=== PATIENT | male | born 1960 | race Two or more races ===

== ENCOUNTER 2025-01-07 23:55 | Inpatient (IN) | payer MEDICAID ==
[~2025-01-07] VITALS: Ht 157.5 cm; Wt 44.2 kg
[2025-01-08] VITALS (8 sets, daily range): BP systolic 113–156; BP diastolic 60–74; PULSE 67–78; RESP 16–18; TEMP 97.4–98.4; O2SAT 93–100
[2025-01-08 01:05] LABS: Hematocrit 27.9 % (41.0-53.0); Hemoglobin 9.3 g/dL (13.5-17.5); Mean Corpuscular Hemoglobin 33.7 pg (28.0-32.0); Mean Corpuscular Volume 100.8 fL (80.0-100.0); Nucleated Red Blood Cells % 0.0 %
--- NOTE | 2025-01-08 01:05 | ED.PDOC ---
History of Present Illness HPI Comments 64-year-old male who came to ER via EMS for hypoglycemia. Patient has history of diabetes, end stage renal disease on dialysis every Friday. Was noted by family members that patient appeared weak and lethargic, noted that his blood sugar was low in the 40s. Paramedics were called, blood sugar was 50, was given D10 water, was advised to go to the hospital but patient decided to stay home. Patient had the full dinner, however patient has remained weak and hypoglycemic. 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 Information Source: Patient, Emergency Med Personnel Mode of Arrival: EMS Severity: Moderate Timing: Hours Duration: Since onset Past Medical History PAST MEDICAL HISTORY: DM, ESRD Surgical History (Other): Dialysis every Friday Family History Family History: Reviewed,noncontributory to illness Social History Smoker: Non-Smoker Alcohol: Denies ETOH Use Drugs: Denies Drug Use Lives In: Home Constitutional: reports: fatigue, weakness; denies: chills, diaphoresis, fever, malaise, sweats, others EENTM: denies: blurred vision, double vision, ear bleeding, ear discharge, ear drainage, ear pain, ear ringing, eye pain, eye redness, hearing loss, mouth pain, mouth swelling, nasal discharge, nose bleeding, nose congestion, nose pain, photophobia, tearing, throat pain, throat swelling, voice changes, others Respiratory: denies: cough, hemoptysis, orthopnea, SOB at rest, shortness of breath, SOB with excertion, stridor, wheezing, others Cardiovascular: denies: chest pain, dizzy spells, diaphoresis, Dyspnea on exertion, edema, irregular heart beat, left arm pain, lightheadedness, palpitations, PND, syncope, others Gastrointestinal: denies: abdomen distended, abdominal pain, blood streaked bowels, constipated, diarrhea, dysphagia, difficulty swallowing, hematemesis, melena, nausea, poor appetite, poor fluid intake, rectal bleeding, rectal pain, vomiting, others Genitourinary: denies: burning, dysuria, flank pain, frequency, hematuria, incontinence, penile discharge, penile sore, pain, testicle pain, testicle swelling, urgency, others Neurological: denies: dizziness, fainting, headache, left sided numbness, left sided weakness, numbness, paresthesia, pre-existing deficit, right sided numb ness, right sided weakness, seizure, speech problems, tingling, tremors, weakness, others Musculoskeletal: denies: back pain, gout, joint pain, joint swelling, muscle pain, muscle stiffness, neck pain, others Integumetry: denies: bruises, change in color, change in hair/nails, dryness, laceration, lesions, lumps, rash, wounds, others Allergic/Immunocompromised: denies: Difficulty Healing, Frequent Infections, Hives, Itching, others Hematologic/Lymphatic: denies: anemia, blood clots, easy bleeding, easy bruising, swollen glands, others Endocrine: denies: excessive hunger, excessive sweating, excessive thirst, excessive urination, flushing, intolerance to cold, intolerance to heat, unexplained weight gain, unexplained weight loss, others Psychiatric: denies: anxiety, bipolar disorder, depression, hopeless, panic disorder, schizophrenia, sleepless, suicidal, others Physical Exam General Appearance: No Apparent Distress, Normal HEENT: Normal ENT Inspection, Pharynx Normal, TMs Normal Neck: Full Range of Motion, Non-Tender, Normal, Normal Inspection Respiratory: Chest Non-Tender, Lungs Clear, No Accessory Muscle Use, No Respiratory Distress, Normal Breath Sounds Cardiovascular: No Edema, No JVD, No Murmur, No Gallop, Normal Peripheral Pulses, Regular Rate/Rhythm Breast Exam: Deferred Gastrointestinal: No Organomegaly, Non Tender, No Pulsatile Mass, Normal Bowel Sounds, Soft Genitalia: Deferred Pelvic: Deferred Rectal: Deferred Extremities: No calf tenderness, Normal capillary refill, Normal inspection, Normal range of motion, Non-tender, No pedal edema Musculoskeletal : Apperance: Normal Neurologic: Alert, 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 Was a procedure done?: No Differential Dx Considerations may include: Weakness, hypoglycemia, diabetes, sepsis, UTI X-Ray, Labs, Meds, VS Vital Signs Date Time Temp Pulse Resp B/P (MAP) Pulse Ox O2 Delivery O2 Flow Rate FiO2 01/08/25 01:17 78 18 98 Room Air* 0 21 01/08/25 01:17 98.1 78 18 115/68 (84) 98 98.1 01/08/25 00:06 71 01/07/25 23:55 98.4 83 15 131/71 98 98.4 Lab Test 01/08/25 00:58 01/08/25 00:44 Range/Units White Blood Count 4.7 4.4-10.8 10^3/uL Red Blood Count 2.77 L 4.5-5.90 10^6/uL Hemoglobin 9.3 L 13.5-17.5 g/dL Hematocrit 27.9 L 41.0-53.0 % Mean Corpuscular Volume 100.8 H 80.0-100.0 fL Mean Corpuscular Hemoglobin 33.7 H 28.0-32.0 pg Mean Corpuscular Hemoglobin Concent 33.4 32.0-36.0 g/dL Red Cell Distribution Width 14.3 11.8-14.3 % Platelet Count 249 140-450 10^3/uL Mean Platelet Volume 6.7 L 6.9-10.8 fL Neutrophils (%) (Auto) 77.9 37.0-80.0 % Lymphocytes (%) (Auto) 10.4 10.0-50.0 % Monocytes (%) (Auto) 10.5 0.0-12.0 % Eosinophils (%) (Auto) 0.4 0.0-7.0 % Basophils (%) (Auto) 0.8 0.0-2.0 % Neutrophils # (Auto) 3.6 1.6-8.6 10 ^3/uL Lymphocytes # (Auto) 0.5 0.4-5.4 10 ^3/uL Monocytes # (Auto) 0.5 0-1.3 10 ^3/uL Eosinophils # (Auto) 0 0-0.8 10 ^3/uL Basophils # (Auto) 0 0-0.2 10 ^3/uL Nucleated Red Blood Cells 0.0 % Sodium Level 133 L 136-145 mmol/L Potassium Level 3.5 3.5-5.1 mmol/L Chloride Level 93 L 98-107 mmol/L Carbon Dioxide Level 29 20-31 mmol/L Anion Gap 11 5-15 Blood Urea Nitrogen 40 H 9-23 mg/dL Creatinine 3.74 H 0.700-1.30 mg/dL Glomerular Filtration Rate Calc 17 >90 mL/min BUN/Creatinine Ratio 10.7 10.0-20.0 Serum Glucose 150 H 74-106 mg/dL Lactic Acid Level 2.5 *H 0.4-2.0 mmol/L Calcium Level 9.4 8.7-10.4 mg/dL Total Bilirubin 0.2 0.2-1.0 mg/dL Aspartate Amino Transferase (AST) 13 13-40 U/L Alanine Aminotransferase (ALT) < 9 7-40 U/L Alkaline Phosphatase 104 46-116 U/L Total Protein 7.7 5.7-8.2 g/dL Albumin 4.0 3.2-4.8 g/dL POC Glucose 147 H 70-106 mg/dl Time of 1ST Reevaluation: 00:58 Reevaluation 1ST: Unchanged Patient Education/Counseling: Diagnosis, Treatment Family Education/Counseling: No Family Present SEPSIS Sepsis Screen Date sepsis recognized/suspect: Jan 07, 2025 Time Sepsis recognized/suspect: 2354 Recent Procedure: No On Antibiotic Therapy: No Respiratory Rate >20: No Heart Rate >90: No Temp<36 C (96.8 F) or >38.3 C: No SBP <90 or MAP <65 mmHG: No New Acute Mental Status Change: No Is the patient on CPAP, BIPAP,: No Physician Orders Electrocardigram (01/08/25 00:15) Blood Culture (01/08/25 00:26) Chest Portable (01/08/25 00:26) Blood Glucose Q2h (01/08/25 00:26) Vital Signs Date Time Temp Pulse Resp B/P (MAP) Pulse Ox O2 Delivery O2 Flow Rate FiO2 01/08/25 01:17 78 18 98 Room Air* 0 21 01/08/25 01:17 98.1 78 18 115/68 (84) 98 98.1 01/08/25 00:06 71 01/07/25 23:55 98.4 83 15 131/71 98 98.4 Laboratory Tests Test 01/08/25 00:58 Lactic Acid Level 2.5 mmol/L (0.4-2.0) *H White Blood Count 4.7 10^3/uL (4.4-10.8) Departure 1 Departure Time of Disposition: 02:35 Impression: Primary Impression: End stage renal failure on dialysis Additional Impression: Hypoglycemia Disposition: ADMITTED INPATIENT Condition: Guarded Discharged With: Self Comments 64-year-old male with a history of chronic renal failure on dialysis. Patient's glucose got low but now is improved. Lab results reviewed. Lactic acid slightly elevated 2.5. Chronic renal failure with BUN of 50 40 and creatinine of 3.74. Glucose improved to 147 then 150. Patient will need to be monitored to monitor his glucose and his renal failure. Patient will need admission for supportive care and further workup. Critical Care Note Critical Care Time?: Yes (35 min-critical care time only) Critical care comment: Hypoglycemia Stability Stability form required: No Heart Score Heart Score: Heart Score Response (Comments) Value History N/A 0 EKG N/A 0 Age N/A 0 Risk Factors N/A 0 Troponin N/A 0 Total 0 I personally scribed for DANNY OLMOS MD ([email or web address]) on 01/08/25 at 01:05. Electronically submitted by Salvador Garcia ([email or web address]). DANNY OLMOS MD Jan 08, 2025 01:05
[2025-01-08 01:25] LABS: Albumin 4.0 g/dL (3.2-4.8); Alkaline Phosphatase 104 U/L (46-116); Anion Gap 11 (5-15); BUN/Creatinine Ratio 10.7 (10.0-20.0); Calcium 9.4 mg/dL (8.7-10.4); Carbon Dioxide 29 mmol/L (20-31); Total Protein 7.7 g/dL (5.7-8.2)
[2025-01-08 01:28] LABS: Lactic Acid w/Reflex 2.5 mmol/L (0.4-2.0)
[2025-01-08 01:29] LABS: Alanine Aminotransferase < 9 U/L (7-40); Bilirubin, Total 0.2 mg/dL (0.2-1.0); Blood Urea Nitrogen 40 mg/dL (9-23); Chloride 93 mmol/L (98-107); Glucose 150 mg/dL (74-106); Potassium 3.5 mmol/L (3.5-5.1); Sodium 133 mmol/L (136-145)
--- NOTE | 2025-01-08 02:30 | DVH ---
CHEST RADIOGRAPH Indication: SOB Technique: Single frontal view of the chest was obtained COMPARISON: None FINDINGS: Lines and Tubes: None Lungs: Moderate patchy bilateral lower lung zone pulmonary airspace disease. Pleura: No effusion. No pneumothorax. Cardiomediastinal contours: Unremarkable Bones: Unremarkable Moderate gastric distention. IMPRESSION: 1. Moderate patchy bilateral lower lung zone pulmonary airspace disease. 2. Moderate gastric distention.
[2025-01-08] MEDS ORDERED: DEXTROSE 50% SYRINGE 50 ML IV ONE (04:10)
[2025-01-08] MEDS: DEXTROSE (50%) 50ML SYRG IV ONE (04:22)
[2025-01-08] MEDS: D5W 5% 1,000 ML IV ONE (04:22)
[2025-01-08] MEDS: D5W/LACTATED RINGERS 1,000 ML IV ONE (04:30)
[2025-01-08] MEDS ORDERED: DEXTROSE (50%) 50ML SYRG IV PRN (04:45)
[2025-01-08] MEDS ORDERED: NITROGLYCERIN 0.4 MG SL TAB SL PRN (05:00)
[2025-01-08] MEDS ORDERED: MORPHINE SULFATE INJ 2 MG/ml SYRG IV PRN ×2 (05:00→11:00)
[2025-01-08 05:05] LABS: INR 0.94 (0.9-1.15); Prothrombin Time 10.0 sec (9.3-11.8)
[2025-01-08 06:14] LABS: COVID19 ANTIGEN SOFIA FIA NEGATIVE (NEGATIVE)
[2025-01-08] MEDS: ACCU-CHEK COMFORT CURVE STRIP VI SCH (06:35)
--- NOTE | 2025-01-08 08:19 | DVHHPRES ---
History of Present Illness Resident Creating Document: DION MILIAN RESIDENT History of Present Illness 64-year-old male with history of end-stage renal disease on hemodialysis, bilateral cataracts, type 2 diabetes mellitus, peripheral neuropathy, chronic diarrhea, gangrene on left index finger and osteomyelitis on left middle finger presented with complaints of hypoglycemic episode with blood glucose level of 40. Patient complains that he felt nauseous and his vision went black. He also states that his head and throat began pounding and that he felt confused. PSHx: Hip surgery post mechanical fall in 2021 Family history: Diabetes mellitus in mother Social history: Denies smoking alcohol or recreational drug use Home medication: Midodrine, sevelamer, dutasteride, gabapentin, metoclopramide, Lokelma, Lantus 15 units at bedtime, Nephro-Lui Allergic history: Patient denies Lives with his daughter Review of Systems Review of Systems General: patient denies fever, fatigue, weaknes, sweating, any recent changes in appetite and weight HEENT: No headaches, visiual changes, hearing loss, tinnitus, nasal congestion and discharge, and sore throat. Cardiovascular: Denies chest pain, palpitations, dyspnea on exertion, orthopnea, or claudication. Respiratory: No cough, and wheezing. Gastrointestinal: Denies nausea, vomiting, dysphagia, odynophagia, heartburn, abdominal pain, flatulence, bloating, diarrhea, constipation, change in stool, or blood in stool. Genitourinary: No dysuria, hematuria, discharge, frequency, urgency, nocturia, incontinence, and urinary retention. Endocrine: No heat or cold intolerance, polydipsia, polyuria, and polyphagia. Neurological: No dizziness, extremity weakness and numbness, tremors, gait disturbance, seizures, and memory impairment. Psychiatric: Denies depression, anxiety,or insomnia. Musculoskeletal: Denies neck pain, stiffness and swelling, back pain, muscle weakness, joint pain, stiffness, swelling, or limited range of motion. Skin: No rashes, itching, skin lesion, changes in hair, nail, skin texture and b reast. Hematologic/Lymphatic: Denies easy bruising, bleeding tendencies, or lymph node enlargement. Allergies: Uncoded Allergies: nkda (Allergy, Unknown, 01/08/25) Medications Current Medications Medications Dose Ordered Sig/Jakob Route Start Time Stop Time Status Last Admin Dose Admin Amlodipine Besylate 5 mg DAILY PO 01/08/25 10:00 Diagnostic Test (Pha) 1 strip ACHS 01/08/25 07:00 01/08/25 06:35 1 STRIP Dextrose 50 ml UD PRN IV 01/08/25 04:45 Nitroglycerin 0.4 mg Q5MINP PRN SL 01/08/25 05:00 Morphine Sulfate 2 mg Q30M PRN IV 01/08/25 05:00 Exam Vital Signs Vital Signs Date Time Temp Pulse Resp B/P (MAP) Pulse Ox O2 Delivery O2 Flow Rate FiO2 01/08/25 06:09 98.1 78 20 150/83 (105) 97 98.1 01/08/25 01:17 Room Air* 0 21 Exam General Appearance: Confused, oriented to name and place, not oriented to time, Cooperative, mild distress HEENT: Atraumatic, PERRLA, EOMI, Mucous membrane moist/pink Respiratory: Clear to auscultation, Normal air movement Cardiovascular: Regular rate, Normal S1, Normal S2, No murmurs, no chest wall tenderness Abdominal: Diffuse abdominal tenderness present Extremities: Gangrene on left index finger Skin: No rashes, No breakdown Neuro: Normal gait, Normal speech, Strength at 5/5 X4 ext, Normal tone, Sensation intact, Cranial nerves 3-12 NL, Reflexes 2+ Psych/Mental Status: Mental status NL, Mood NL Labs/Xrays Labs Test 01/08/25 06:22 01/08/25 04:37 01/08/25 03:00 01/08/25 00:58 Range/Units POC Glucose 126 H 70-106 mg/dl Influenza Type A Antigen Negative Negative Influenza Type B Antigen Negative Negative SARS-CoV-2 Antigen (Rapid) Negative NEGATIVE Lactic Acid Level 1.8 0.4-2.0 mmol/L White Blood Count 4.7 4.4-10.8 10^3/uL Red Blood Count 2.77 L 4.5-5.90 10^6/uL Hemoglobin 9.3 L 13.5-17.5 g/dL Hematocrit 27.9 L 41.0-53.0 % Mean Corpuscular Volume 100.8 H 80.0-100.0 fL Mean Corpuscular Hemoglobin 33.7 H 28.0-32.0 pg Mean Corpuscular Hemoglobin Concent 33.4 32.0-36.0 g/dL Red Cell Distribution Width 14.3 11.8-14.3 % Platelet Count 249 140-450 10^3/uL Mean Platelet Volume 6.7 L 6.9-10.8 fL Neutrophils (%) (Auto) 77.9 37.0-80.0 % Lymphocytes (%) (Auto) 10.4 10.0-50.0 % Monocytes (%) (Auto) 10.5 0.0-12.0 % Eosinophils (%) (Auto) 0.4 0.0-7.0 % Basophils (%) (Auto) 0.8 0.0-2.0 % Neutrophils # (Auto) 3.6 1.6-8.6 10 ^3/uL Lymphocytes # (Auto) 0.5 0.4-5.4 10 ^3/uL Monocytes # (Auto) 0.5 0-1.3 10 ^3/uL Eosinophils # (Auto) 0 0-0.8 10 ^3/uL Basophils # (Auto) 0 0-0.2 10 ^3/uL Nucleated Red Blood Cells 0.0 % Sodium Level 133 L 136-145 mmol/L Potassium Level 3.5 3.5-5.1 mmol/L Chloride Level 93 L 98-107 mmol/L Carbon Dioxide Level 29 20-31 mmol/L Anion Gap 11 5-15 Blood Urea Nitrogen 40 H 9-23 mg/dL Creatinine 3.74 H 0.700-1.30 mg/dL Glomerular Filtration Rate Calc 17 >90 mL/min BUN/Creatinine Ratio 10.7 10.0-20.0 Serum Glucose 150 H 74-106 mg/dL Calcium Level 9.4 8.7-10.4 mg/dL Phosphorus Level 1.4 L 2.4-5.1 mg/dL Total Bilirubin 0.2 0.2-1.0 mg/dL Aspartate Amino Transferase (AST) 13 13-40 U/L Alanine Aminotransferase (ALT) < 9 7-40 U/L Alkaline Phosphatase 104 46-116 U/L Total Protein 7.7 5.7-8.2 g/dL Albumin 4.0 3.2-4.8 g/dL Test 01/08/25 00:48 Range/Units Prothrombin Time 10.0 9.3-11.8 sec Prothrombin Time INR 0.94 0.9-1.15 SEPSIS Sepsis Screen Date sepsis recognized/suspect: Jan 08, 2025 Time Sepsis recognized/suspect: 0122 Recent Procedure: No On Antibiotic Therapy: No Respiratory Rate >20: No Heart Rate >90: No Temp<36 C (96.8 F) or >38.3 C: No SBP <90 or MAP <65 mmHG: No New Acute Mental Status Change: No Is the patient on CPAP, BIPAP,: No Physician Orders Electrocardigram (01/08/25 00:15) Blood Culture (01/08/25 00:26) Chest Portable (01/08/25 00:26) Blood Glucose Q2h (01/08/25 00:26) Pantoprazole (Protonix) (01/08/25 10:00) D5w/Lactated Ringers (D5wlr) (01/08/25 04:30) Legionella Pneumophila Abs (01/08/25 04:37) Basic Metabolic Panel (01/08/25 11:59) Intake And Output (01/08/25 04:40) Amlodipine Tablet (Norvasc Tablet) (01/08/25 10:00) Glucose Blood (Accu-Chek Comfort Curve T (01/08/25 07:00) Dextrose 50% Syringe (01/08/25 04:45) Urinalysis (01/08/25 04:44) Admit (01/08/25 04:53) Nitroglycerin Sublingual (Ntrostat Subli (01/08/25 05:00) Morphine Sulfate Injection (01/08/25 05:00) Oxygen By Nasal Cannula (01/08/25 04:53) Stat Ekg For Chest Pain (01/08/25 04:53) Notify Md Of Changes From Base (01/08/25 04:53) Application Defense Manager For 24 Hours (01/08/25 04:53) Emergency Dysrhythmia Protocol (01/08/25 04:53) Rhythm Strips Once Every Shift (01/08/25 04:53) Vital Signs Date Time Temp Pulse Resp B/P (MAP) Pulse Ox O2 Delivery O2 Flow Rate FiO2 01/08/25 06:09 98.1 78 20 150/83 (105) 97 98.1 01/08/25 02:52 70 176/65 (102) 01/08/25 01:17 78 18 98 Room Air* 0 21 01/08/25 01:17 98.1 78 18 115/68 (84) 98 98.1 01/08/25 00:06 71 Laboratory Tests Test 01/08/25 00:58 01/08/25 03:00 Lactic Acid Level 2.5 mmol/L (0.4-2.0) *H 1.8 mmol/L (0.4-2.0) White Blood Count 4.7 10^3/uL (4.4-10.8) Medications Medications Dose Ordered Sig/Jakob Route Start Time Stop Time Status Last Admin Dose Admin Dextrose 25 ml ONCE ONCE IV 01/08/25 04:15 01/08/25 04:16 DC 01/08/25 04:22 25 ML Dextrose 1,000 ml @ 100 mls/hr Q10H ONCE IV 01/08/25 04:15 01/08/25 04:38 DC 01/08/25 04:22 100 MLS/HR Dextrose/Lactated Ringer's 1,000 ml @ 50 mls/hr Q20H ONCE IV 01/08/25 04:30 01/09/25 00:29 01/08/25 04:30 50 MLS/HR Diagnostic Test (Pha) 1 strip ACHS 01/08/25 07:00 01/08/25 06:35 1 STRIP Assessment/Plan Assessment/Plan Assessment #Recurrent hypoglycemic episodes #End-stage renal disease on hemodialysis #Gangrene on left index finger, present on admission #Bilateral cataracts #History of osteomyelitis in the left middle finger #Vitamin D deficiency #Mild hyponatremia #History of diabetes mellitus #History of peripheral neuropathy #Chronic diarrhea #History of essential hypertension #Macrocytic anemia Plan IV glucagon IV dextrose Follow folate, B12 Hemodialysis scheduled for today Urinalysis Follow phosphorus levels Legionella sent Amlodipine 5 started PCP: Dr. Olivera Barriers to discharge: Medical management in progress. Case discussed with Dr. Gilman Code status: Full code. Complex patient care discussion needed total 35 minutes Plan discussed with: Patient, Daughter Date of Service: Jan 08, 2025 Billing Provider: TALISHA GILMAN MD Common Visit Codes: 20764-[id number] INP/OBS CARE (HIGH) Secondary Visit Codes: [id number] CARE PLAN 30 MINUTES DION MILIAN RESIDENT Jan 08, 2025 08:04
[2025-01-08] MEDS: GLUCAGON EMERG KIT 1mg/1ml IV ONE (08:37)
[2025-01-08] MEDS: PANTOPRAZOLE 40 MG/10 ML VIAL INJ IV ONE (09:10)
[2025-01-08] MEDS ORDERED: ACETAMINOPHEN 325 MG TAB PO PRN (11:00)
--- NOTE | 2025-01-08 11:21 | DVHINCON2 ---
Date of service: Jan 08, 2025 Referring Physician Amy Vickers [ Resident] Reason for Consultation End-stage kidney disease History of Present Illness This is a 64-year-old male with history of end-stage kidney disease on hemodialysis, type 2 diabetes, peripheral neuropathy, chronic diarrhea, gangrene on left index finger and osteomyelitis of left middle finger presenting to the emergency room because of recurrent hypoglycemic attacks. As per the history he has been on insulin at home. Patient has been admitted for further evaluation and workup. Nephrology has been consulted for continuation of dialysis. His last dialysis was on . Past Medical History As stated above Past Surgical History PSHx: Hip surgery post mechanical fall in 2021 Family History Family history: Diabetes mellitus in mother Social History Social history: Denies smoking alcohol or recreational drug use Allergies: Uncoded Allergies: nkda (Allergy, Unknown, 01/08/25) Current Medications Current Medications Medications (Trade) Dose Ordered Sig/Jakob Route PRN Reason Start Time Stop Time Status Last Admin Amlodipine Besylate (Norvasc Tablet) 5 mg DAILY PO 01/08/25 10:00 01/08/25 09:10 Diagnostic Test (Pha) (Accu-Chek Comfort Curve T) 1 strip ACHS 01/08/25 07:00 01/08/25 06:35 Dextrose 50 ml UD PRN IV Blood Sugar LESS THAN 60 01/08/25 04:45 Nitroglycerin (Ntrostat Sublingual) 0.4 mg Q5MINP PRN SL FOR CHEST PAIN 01/08/25 05:00 Morphine Sulfate 2 mg Q30M PRN IV FOR CHEST PAIN 01/08/25 05:00 Gabapentin (Neurontin Capsule) 100 mg TID PO 01/08/25 14:00 UNV Acetaminophen (Tylenol Tablet) 650 mg Q6HP PRN PO MILD PAIN (1-3 PAIN SCALE) 01/08/25 11:00 UNV Acetaminophen/ Hydrocodone Bitart ([place] 5/325MG Tab) 1 tab Q6HPRN PRN PO MODERATE PAIN (4-6 PAIN SCALE) 01/08/25 11:00 UNV Morphine Sulfate 1 mg Q4HP PRN IV SEVERE PAIN (7-10 PAIN SCALE) 01/08/25 11:00 UNV Review of Systems 12 point review of system negative except as stated in the HPI Vital Signs Vital Signs Date Time Temp Pulse Resp B/P (MAP) Pulse Ox O2 Delivery O2 Flow Rate FiO2 01/08/25 10:57 98.2 67 16 156/60 (92) 93 98.2 01/08/25 01:17 Room Air* 0 21 Physical Exam Arousable. 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 deficits Extremities: No edema Labs/Diagnostic Data Labs Test 01/08/25 10:42 01/08/25 04:37 01/08/25 03:00 01/08/25 00:58 Range/Units POC Glucose 107 H 70-106 mg/dl Influenza Type A Antigen Negative Negative Influenza Type B Antigen Negative Negative SARS-CoV-2 Antigen (Rapid) Negative NEGATIVE Lactic Acid Level 1.8 0.4-2.0 mmol/L White Blood Count 4.7 4.4-10.8 10^3/uL Red Blood Count 2.77 L 4.5-5.90 10^6/uL Hemoglobin 9.3 L 13.5-17.5 g/dL Hematocrit 27.9 L 41.0-53.0 % Mean Corpuscular Volume 100.8 H 80.0-100.0 fL Mean Corpuscular Hemoglobin 33.7 H 28.0-32.0 pg Mean Corpuscular Hemoglobin Concent 33.4 32.0-36.0 g/dL Red Cell Distribution Width 14.3 11.8-14.3 % Platelet Count 249 140-450 10^3/uL Mean Platelet Volume 6.7 L 6.9-10.8 fL Neutrophils (%) (Auto) 77.9 37.0-80.0 % Lymphocytes (%) (Auto) 10.4 10.0-50.0 % Monocytes (%) (Auto) 10.5 0.0-12.0 % Eosinophils (%) (Auto) 0.4 0.0-7.0 % Basophils (%) (Auto) 0.8 0.0-2.0 % Neutrophils # (Auto) 3.6 1.6-8.6 10 ^3/uL Lymphocytes # (Auto) 0.5 0.4-5.4 10 ^3/uL Monocytes # (Auto) 0.5 0-1.3 10 ^3/uL Eosinophils # (Auto) 0 0-0.8 10 ^3/uL Basophils # (Auto) 0 0-0.2 10 ^3/uL Nucleated Red Blood Cells 0.0 % Sodium Level 133 L 136-145 mmol/L Potassium Level 3.5 3.5-5.1 mmol/L Chloride Level 93 L 98-107 mmol/L Carbon Dioxide Level 29 20-31 mmol/L Anion Gap 11 5-15 Blood Urea Nitrogen 40 H 9-23 mg/dL Creatinine 3.74 H 0.700-1.30 mg/dL Glomerular Filtration Rate Calc 17 >90 mL/min BUN/Creatinine Ratio 10.7 10.0-20.0 Serum Glucose 150 H 74-106 mg/dL Calcium Level 9.4 8.7-10.4 mg/dL Phosphorus Level 1.4 L 2.4-5.1 mg/dL Total Bilirubin 0.2 0.2-1.0 mg/dL Aspartate Amino Transferase (AST) 13 13-40 U/L Alanine Aminotransferase (ALT) < 9 7-40 U/L Alkaline Phosphatase 104 46-116 U/L Total Protein 7.7 5.7-8.2 g/dL Albumin 4.0 3.2-4.8 g/dL Test 01/08/25 00:48 Range/Units Prothrombin Time 10.0 9.3-11.8 sec Prothrombin Time INR 0.94 0.9-1.15 Assessment End-stage kidney disease on hemodialysis Uncontrolled diabetes Anemia in Chronic kidney disease Peripheral neuropathy Hypertension Plan/Recommendation Hemodialysis tomorrow. Epogen with dialysis. We will monitor blood sugars closely. Plan discussed with: HARLEEN Mueller MD Jan 08, 2025 11:21
[2025-01-08] MEDS: HYDROcodone-ACET 5/325MG TAB PO PRN (12:28)
[2025-01-08 13:37] LABS: Potassium 4.6 mmol/L (3.5-5.1)
[2025-01-08 13:38] LABS: Anion Gap 9 (5-15); Calcium 8.7 mg/dL (8.7-10.4); Carbon Dioxide 28 mmol/L (20-31)
[2025-01-08 13:43] LABS: BUN/Creatinine Ratio 10.6 (10.0-20.0)
[2025-01-08] MEDS: GABAPENTIN 100 MG CAP PO SCH (13:43)
[2025-01-08 13:57] LABS: Blood Urea Nitrogen 39 mg/dL (9-23); Chloride 95 mmol/L (98-107); Glucose 155 mg/dL (74-106); Sodium 132 mmol/L (136-145)
--- NOTE | 2025-01-08 17:36 | DVHPN2 ---
Subjective Patient is seen at bedside today, doing well. Reviewed: Care Plan Changes from previous H/P or p: No Changes General: Per HPI Objective Vitals Vital Signs Date Time Temp Pulse Resp B/P (MAP) Pulse Ox O2 Delivery O2 Flow Rate FiO2 01/08/25 17:00 97.7 71 16 146/74 (98) 98 97.7 01/08/25 16:50 Room Air* 0 21 Exam General Appearance: Confused, oriented to name and place, not oriented to time, Cooperative, mild distress HEENT: Atraumatic, PERRLA, EOMI, Mucous membrane moist/pink Respiratory: Clear to auscultation, Normal air movement Cardiovascular: Regular rate, Normal S1, Normal S2, No murmurs, no chest wall tenderness Abdominal: Diffuse abdominal tenderness present Extremities: Gangrene on left index finger Skin: No rashes, No breakdown Neuro: Normal gait, Normal speech, Strength at 5/5 X4 ext, Normal tone, Sensation intact, Cranial nerves 3-12 NL, Reflexes 2+ Medications Current Medications Medications Dose Ordered Sig/Jakob Route Start Time Stop Time Status Last Admin Dose Admin Amlodipine Besylate 5 mg DAILY PO 01/08/25 10:00 01/08/25 09:10 5 MG Diagnostic Test (Pha) 1 strip ACHS 01/08/25 07:00 01/08/25 16:59 1 STRIP Dextrose 50 ml UD PRN IV 01/08/25 04:45 Nitroglycerin 0.4 mg Q5MINP PRN SL 01/08/25 05:00 Morphine Sulfate 2 mg Q30M PRN IV 01/08/25 05:00 Gabapentin 100 mg TID PO 01/08/25 14:00 01/08/25 13:43 100 MG Acetaminophen 650 mg Q6HP PRN PO 01/08/25 11:00 Acetaminophen/ Hydrocodone Bitart 1 tab Q6HPRN PRN PO 01/08/25 11:00 01/08/25 12:28 1 TAB Morphine Sulfate 1 mg Q4HP PRN IV 01/08/25 11:00 Laboratory Results Laboratory Tests 01/08/25 00:58 01/08/25 13:01 Chemistry Test 01/08/25 00:58 01/08/25 13:01 Albumin 4.0 g/dL (3.2-4.8) Calcium Level 9.4 mg/dL (8.7-10.4) 8.7 mg/dL (8.7-10.4) Phosphorus Level 1.4 mg/dL (2.4-5.1) L Total Protein 7.7 g/dL (5.7-8.2) Coagulation Test 01/08/25 00:48 Prothrombin Time 10.0 sec (9.3-11.8) Prothrombin Time INR 0.94 (0.9-1.15) LFT Test 01/08/25 00:58 Alanine Aminotransferase (ALT) < 9 U/L (7-40) Alkaline Phosphatase 104 U/L (46-116) Aspartate Amino Transferase (AST) 13 U/L (13-40) Total Bilirubin 0.2 mg/dL (0.2-1.0) Labs and/or images reviewed: Labs reviewed by me, Image(s) reviewed by me Assessment/Plan Assessment/Plan 64-year-old male with history of end-stage renal disease on hemodialysis, bilateral cataracts, type 2 diabetes mellitus, peripheral neuropathy, chronic diarrhea, gangrene on left index finger and osteomyelitis on left middle finger presented with complaints of hypoglycemic episode with blood glucose level of 40. Patient complains that he felt nauseous and his vision went black. He also states that his head and throat began pounding and that he felt confused. #Recurrent hypoglycemic episodes #End-stage renal disease on hemodialysis #Gangrene on left index finger, present on admission #Bilateral cataracts #History of osteomyelitis in the left middle finger #Vitamin D deficiency #Mild hyponatremia #History of diabetes mellitus #History of peripheral neuropathy #Chronic diarrhea #History of essential hypertension #Macrocytic anemia Plan - Accu-Cheks Folate B12 HD consult Nephrology Start D5 LR Advance diet Med surge Full code Plan discussed with: Patient My Orders Orders - MICHAEL HUIZAR MD Procedure Category Date Status Time Pureed DIET 01/08/25 Transmitted Lunch Gabapentin Capsule PHA 01/08/25 In Process (Neurontin Capsule) 14:00 Acetaminophen Tablet PHA 01/08/25 In Process (Tylenol Tablet) 11:00 Hydrocodone-Acet PHA 01/08/25 In Process 5/325mg Tab ([place] 11:00 Morphine Sulfate PHA 01/08/25 In Process Injection 11:00 Date of Service: Jan 08, 2025 Billing Provider: MICHAEL HUIZAR MD Common Visit Codes: [id number] INP/OBS CARE(HIGH) MICHAEL HUIZAR MD Jan 08, 2025 17:36
--- NOTE | 2025-01-08 18:58 | ECG ---
[facility] Test Date: 2025-01-08 Test Time: 00:06:26 Pat Name: ZACHARIAH BARDALES Department: Room: 0218 Gender: M Anchor Operator: SHEYLA : 1960 Requested By: DANNY OLMOS Order Number: [id number] Reading MD: Juliano Butler Measurements Intervals Waterflow Rate: 71 P: 67 NV: 141 QRS: 55 QRSD: 96 T: 6 QT: 480 QTc: 522 Interpretive Statements Sinus rhythm Consider inferior infarct Probable lateral infarct, old Prolonged QT interval Electronically Signed On 01-09-2025 17:56:16 PDT by Juliano Butler Please click the below link to view image of tracing.
[2025-01-09] VITALS (8 sets, daily range): BP systolic 100–172; BP diastolic 53–104; PULSE 67–82; RESP 12–18; TEMP 97.5–98.3; O2SAT 91–100
[2025-01-09 06:33] LABS: Hemoglobin 8.0 g/dL (13.5-17.5)
[2025-01-09 06:36] LABS: Hematocrit 25.6 % (41.0-53.0); Mean Corpuscular Hemoglobin 34.4 pg (28.0-32.0); Mean Corpuscular Volume 110.1 fL (80.0-100.0); Nucleated Red Blood Cells % 0.4 %
[2025-01-09 06:58] LABS: Alkaline Phosphatase 68 U/L (46-116); Anion Gap 11 (5-15); BUN/Creatinine Ratio 8.9 (10.0-20.0); Carbon Dioxide 21 mmol/L (20-31)
[2025-01-09 07:48] LABS: Chloride 97 mmol/L (98-107); Potassium 5.2 mmol/L (3.5-5.1); Sodium 129 mmol/L (136-145)
[2025-01-09 07:49] LABS: Alanine Aminotransferase < 9 U/L (7-40); Albumin 2.4 g/dL (3.2-4.8); Bilirubin, Total < 0.2 mg/dL (0.2-1.0); Blood Urea Nitrogen 31 mg/dL (9-23); Calcium 8.1 mg/dL (8.7-10.4); Glucose 768 mg/dL (74-106); Total Protein 5.1 g/dL (5.7-8.2)
[2025-01-09] MEDS ORDERED: METOCLOPRAMIDE HCL 5MG/ml INJ 2ml VIAL IV PRN (14:15)
--- NOTE | 2025-01-09 14:24 | DVHPN2 ---
Subjective Patient is seen at bedside today, doing well. Reviewed: Care Plan Changes from previous H/P or p: No Changes General: Per HPI Objective Vitals Vital Signs Date Time Temp Pulse Resp B/P (MAP) Pulse Ox O2 Delivery O2 Flow Rate FiO2 01/09/25 09:43 100/65 01/09/25 09:00 97.5 68 12 99 97.5 01/09/25 08:00 Room Air* 0 21 Intake/Output Intake and Output 01/09/25 07:00 Intake Total 125 ml Balance 125 ml Intake Oral 125 ml # Bowel Movements 1 Exam General Appearance: Confused, oriented to name and place, not oriented to time, Cooperative, mild distress HEENT: Atraumatic, PERRLA, EOMI, Mucous membrane moist/pink Respiratory: Clear to auscultation, Normal air movement Cardiovascular: Regular rate, Normal S1, Normal S2, No murmurs, no chest wall tenderness Abdominal: Diffuse abdominal tenderness present Extremities: Gangrene on left index finger Skin: No rashes, No breakdown Neuro: Normal gait, Normal speech, Strength at 5/5 X4 ext, Normal tone, Sensation intact, Cranial nerves 3-12 NL, Reflexes 2+ Medications Current Medications Medications Dose Ordered Sig/Jakob Route Start Time Stop Time Status Last Admin Dose Admin Amlodipine Besylate 5 mg DAILY PO 01/08/25 10:00 01/08/25 09:10 5 MG Diagnostic Test (Pha) 1 strip ACHS 01/08/25 07:00 01/09/25 11:17 1 STRIP Dextrose 50 ml UD PRN IV 01/08/25 04:45 Nitroglycerin 0.4 mg Q5MINP PRN SL 01/08/25 05:00 Morphine Sulfate 2 mg Q30M PRN IV 01/08/25 05:00 Gabapentin 100 mg TID PO 01/08/25 14:00 01/09/25 05:30 100 MG Acetaminophen 650 mg Q6HP PRN PO 01/08/25 11:00 Acetaminophen/ Hydrocodone Bitart 1 tab Q6HPRN PRN PO 01/08/25 11:00 01/08/25 12:28 1 TAB Morphine Sulfate 1 mg Q4HP PRN IV 01/08/25 11:00 Metoclopramide HCl 5 mg Q8HPRN PRN IV 01/09/25 14:15 UNV Laboratory Results Laboratory Tests 01/09/25 05:36 Chemistry Test 01/09/25 05:36 Albumin 2.4 g/dL (3.2-4.8) L Calcium Level Pending Total Protein 5.1 g/dL (5.7-8.2) L LFT Test 01/09/25 05:36 Alanine Aminotransferase (ALT) < 9 U/L (7-40) Alkaline Phosphatase 68 U/L (46-116) Aspartate Amino Transferase (AST) 10 U/L (13-40) L Total Bilirubin < 0.2 mg/dL (0.2-1.0) L Microbiology Microbiology Date/Time Source Procedure Growth Status 01/08/25 00:58 Blood Blood Culture - Preliminary NO GROWTH AFTER 24 HOURS OF INCUBATION. Resulted Labs and/or images reviewed: Labs reviewed by me, Image(s) reviewed by me Assessment/Plan Assessment/Plan 64-year-old male with history of end-stage renal disease on hemodialysis, bilateral cataracts, type 2 diabetes mellitus, peripheral neuropathy, chronic diarrhea, gangrene on left index finger and osteomyelitis on left middle finger presented with complaints of hypoglycemic episode with blood glucose level of 40. Patient complains that he felt nauseous and his vision went black. He also states that his head and throat began pounding and that he felt confused. 01/09: Patient has been euglycemic with D5 LR drip. The drip was stopped, morning a.m. BNP glucose was in the 700s but POC fingerstick was normal, patient does appear to have possible peripheral artery disease as he has left hand wounds and gangrene. Possible that fingerstick we will not match with actual glucose level, getting stat repeat BNP, patient does have some anion gap and hyper kalemia which could be from also CKD. Nephrology has been consulted. We will reassess, start home meds, if hyperglycemic we will need insulin. For now just Accu-Cheks. #Recurrent hypoglycemic episodes #End-stage renal disease on hemodialysis #Gangrene on left index finger, present on admission #Bilateral cataracts #History of osteomyelitis in the left middle finger #Vitamin D deficiency #Mild hyponatremia #History of diabetes mellitus #History of peripheral neuropathy #Chronic diarrhea #History of essential hypertension #Macrocytic anemia Plan - Accu-Cheks Folate B12 HD consult Nephrology Start D5 LR Advance diet Med surge Full code Plan discussed with: Patient My Orders Orders - MICHAEL HUIZAR MD Procedure Category Date Status Time Basic Metabolic Panel LAB 01/09/25 In Process 12:41 Metoclopramide PHA 01/09/25 Logged Injection (Reglan 14:15 Finasteride Tablet PHA 01/09/25 Transmitted (Proscar Tablet) 14:30 Sodium Zirconium PHA 01/09/25 Transmitted Cyclosilicate 14:30 Date of Service: Jan 09, 2025 Billing Provider: MICHAEL HUIZAR MD Common Visit Codes: [id number] INP/OBS CARE(HIGH) MICHAEL HUIZAR MD Jan 09, 2025 14:24
[2025-01-09] MEDS ORDERED: SODIUM CHL 0.9% 1000 ML BAG XX ONE (14:30)
[2025-01-09] MEDS ORDERED: SODIUM ZIRCONIUM CYCL 10 GM PAK PO SCH (14:30)
[2025-01-09] MEDS: FINASTERIDE 5 MG TAB PO SCH (14:30)
[2025-01-09 14:47] LABS: Anion Gap 9 (5-15); Carbon Dioxide 24 mmol/L (20-31)
[2025-01-09 14:52] LABS: BUN/Creatinine Ratio 10.0 (10.0-20.0)
[2025-01-09 14:54] LABS: Chloride 95 mmol/L (98-107); Potassium 5.5 mmol/L (3.5-5.1); Sodium 128 mmol/L (136-145)
[2025-01-09 14:55] LABS: Blood Urea Nitrogen 43 mg/dL (9-23); Calcium 8.5 mg/dL (8.7-10.4); Glucose 125 mg/dL (74-106)
--- NOTE | 2025-01-09 16:22 | DVHPN2 ---
Progress Note - Dictate Date Seen: Jan 09, 2025 Medical Necessity Reason Pt with a Central, PICC or Fol: No Subjective no acute issues overnight vital signs Vital Sign Date Time Temp Pulse Resp B/P (MAP) Pulse Ox O2 Delivery O2 Flow Rate FiO2 01/09/25 13:00 97.7 69 16 113/59 (77) 99 97.7 01/09/25 08:00 Room Air* 0 21 Total Intake and Output 01/08/25 01/08/25 01/09/25 15:00 23:00 07:00 Intake Total 0 ml 125 ml Balance 0 ml 125 ml medications Current Medications Medications Dose Ordered Sig/Jakob Route Start Time Stop Time Status Last Admin Dose Admin Amlodipine Besylate 5 mg DAILY PO 01/08/25 10:00 01/08/25 09:10 5 MG Diagnostic Test (Pha) 1 strip ACHS 01/08/25 07:00 01/09/25 11:17 1 STRIP Dextrose 50 ml UD PRN IV 01/08/25 04:45 Nitroglycerin 0.4 mg Q5MINP PRN SL 01/08/25 05:00 Morphine Sulfate 2 mg Q30M PRN IV 01/08/25 05:00 Acetaminophen 650 mg Q6HP PRN PO 01/08/25 11:00 Acetaminophen/ Hydrocodone Bitart 1 tab Q6HPRN PRN PO 01/08/25 11:00 01/08/25 12:28 1 TAB Morphine Sulfate 1 mg Q4HP PRN IV 01/08/25 11:00 Metoclopramide HCl 5 mg Q8HPRN PRN IV 01/09/25 14:15 Finasteride 5 mg DAILY PO 01/09/25 14:30 Gabapentin 100 mg DAILY PO 01/10/25 14:00 objective In no acute distress HEENT: Normocephalic, no JVD Lungs: Bilateral good air entry CVS: S1, S2 regular rate rhythm Abdomen: Soft, bowel 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 Hold amlodipine. Continue to monitor blood sugars closely. Plan discussed with: HARLEEN Connors MD Jan 09, 2025 16:22
[2025-01-09] MEDS: PSYLLIUM PWD 5.8GM PKG PO ONE (21:13)
[2025-01-09] MEDS: EPOETIN ALFA-EPBX 10,000 UNIT/1ML VIAL SC ONE (21:14)
[2025-01-09] MEDS: APIXABAN 5 MG TAB PO SCH (21:14)
[2025-01-10 01:00] VITALS: BP 117/61; PULSE 79; RESP 17; TEMP 97.2; O2SAT 97
[2025-01-10 05:00] VITALS: BP 112/79; PULSE 78; RESP 18; TEMP 98.3; O2SAT 100
[2025-01-10 07:30] LABS: Alkaline Phosphatase 78 U/L (46-116); Anion Gap 7 (5-15); BUN/Creatinine Ratio 7.9 (10.0-20.0); Blood Urea Nitrogen 22 mg/dL (9-23); Carbon Dioxide 29 mmol/L (20-31); Chloride 99 mmol/L (98-107); Glucose 80 mg/dL (74-106); Potassium 4.8 mmol/L (3.5-5.1); Total Protein 6.0 g/dL (5.7-8.2)
[2025-01-10 07:49] LABS: Alanine Aminotransferase < 9 U/L (7-40); Albumin 3.1 g/dL (3.2-4.8); Bilirubin, Total 0.2 mg/dL (0.2-1.0); Calcium 8.4 mg/dL (8.7-10.4); Sodium 135 mmol/L (136-145)
[2025-01-10 09:00] VITALS: BP 128/78; PULSE 73; RESP 16; TEMP 97.7; O2SAT 96
[2025-01-10 13:00] VITALS: BP 118/58; PULSE 73; RESP 16; TEMP 98.1; O2SAT 97
[2025-01-10] MEDS: GABAPENTIN 100 MG CAP PO SCH (14:00)
--- NOTE | 2025-01-10 15:57 | DVHDS2 ---
Discharge Summary Date of Admission Jan 08, 2025 at 04:53 Date of Discharge: Jan 10, 2025 Labs/Diagnostic Data: Laboratory Results Test 01/10/25 11:30 01/10/25 05:57 01/09/25 14:09 01/09/25 05:36 POC Glucose 88 mg/dl (70-106) Sodium Level 135 mmol/L (136-145) Potassium Level 4.8 mmol/L (3.5-5.1) Chloride Level 99 mmol/L (98-107) Carbon Dioxide Level 29 mmol/L (20-31) Anion Gap 7 (5-15) Blood Urea Nitrogen 22 mg/dL (9-23) Creatinine 2.77 mg/dL (0.700-1.30) Glomerular Filtration Rate Calc 25 mL/min (>90) BUN/Creatinine Ratio 7.9 (10.0-20.0) Serum Glucose 80 mg/dL (74-106) Calcium Level 8.4 mg/dL (8.7-10.4) Total Bilirubin 0.2 mg/dL (0.2-1.0) Aspartate Amino Transferase (AST) 13 U/L (13-40) Alanine Aminotransferase (ALT) < 9 U/L (7-40) Alkaline Phosphatase 78 U/L (46-116) Total Protein 6.0 g/dL (5.7-8.2) Albumin 3.1 g/dL (3.2-4.8) Hepatitis B Surface Antigen Negative (Negative) White Blood Count 3.1 10^3/uL (4.4-10.8) Red Blood Count 2.32 10^6/uL (4.5-5.90) Hemoglobin 8.0 g/dL (13.5-17.5) Hematocrit 25.6 % (41.0-53.0) Mean Corpuscular Volume 110.1 fL (80.0-100.0) Mean Corpuscular Hemoglobin 34.4 pg (28.0-32.0) Mean Corpuscular Hemoglobin Concent 31.2 g/dL (32.0-36.0) Red Cell Distribution Width 15.5 % (11.8-14.3) Platelet Count 206 10^3/uL (140-450) Mean Platelet Volume 7.5 fL (6.9-10.8) Neutrophils (%) (Auto) 63.6 % (37.0-80.0) Lymphocytes (%) (Auto) 23.4 % (10.0-50.0) Monocytes (%) (Auto) 10.1 % (0.0-12.0) Eosinophils (%) (Auto) 1.1 % (0.0-7.0) Basophils (%) (Auto) 1.8 % (0.0-2.0) Neutrophils # (Auto) 2.0 10 ^3/uL (1.6-8.6) Lymphocytes # (Auto) 0.7 10 ^3/uL (0.4-5.4) Monocytes # (Auto) 0.3 10 ^3/uL (0-1.3) Eosinophils # (Auto) 0 10 ^3/uL (0-0.8) Basophils # (Auto) 0.1 10 ^3/uL (0-0.2) Nucleated Red Blood Cells 0.4 % Test 01/08/25 04:37 01/08/25 03:00 01/08/25 00:58 01/08/25 00:48 Influenza Type A Antigen Negative (Negative) Influenza Type B Antigen Negative (Negative) SARS-CoV-2 Antigen (Rapid) Negative (NEGATIVE) Lactic Acid Level 1.8 mmol/L (0.4-2.0) Phosphorus Level 1.4 mg/dL (2.4-5.1) Prothrombin Time 10.0 sec (9.3-11.8) Prothrombin Time INR 0.94 (0.9-1.15) Other Laboratory Tests 01/10/25 05:57 01/09/25 05:36 Brief Hx & Hospital Course: 64-year-old male with history of end-stage renal disease on hemodialysis, bilateral cataracts, type 2 diabetes mellitus, peripheral neuropathy, chronic diarrhea, gangrene on left index finger and osteomyelitis on left middle finger presented with complaints of hypoglycemic episode with blood glucose level of 40. Patient complains that he felt nauseous and his vision went black. He also states that his head and throat began pounding and that he felt confused. 01/09: Patient has been euglycemic with D5 LR drip. The drip was stopped, morning a.m. BNP glucose was in the 700s but POC fingerstick was normal, patient does appear to have possible peripheral artery disease as he has left hand wounds and gangrene. Possible that fingerstick we will not match with actual glucose level, getting stat repeat BNP, patient does have some anion gap and hyperkalemia which could be from also CKD. Nephrology has been consulted. We will reassess, start home meds, if hyperglycemic we will need insulin. For now just Accu-Cheks. 01/10: Patient blood glucose stable. needs no further insulin. blood cultures negative.f/u with pcp to re-eval any ongoing needs for insulin. Continue other home medications not mentioned above. Diagnosis: #Recurrent hypoglycemic episodes, Iatrogenic due to insulin #End-stage renal disease on hemodialysis #Gangrene on left index finger, present on admission #Bilateral cataracts #History of osteomyelitis in the left middle finger #Vitamin D deficiency #Mild hyponatremia #History of diabetes mellitus #History of peripheral neuropathy #Chronic diarrhea #History of essential hypertension #Macrocytic anemia Discharge plan: no further insulin. f/u with pcp to re-eval any ongoing needs for insulin. Continue other home medications not mentioned above. ( continue Eliquis, finasteride, gabapentin, ) Condition at Discharge: Fair Final Diagnosis/Problems List #Recurrent hypoglycemic episodes, Iatrogenic due to insulin #End-stage renal disease on hemodialysis #Gangrene on left index finger, present on admission #Bilateral cataracts #History of osteomyelitis in the left middle finger #Vitamin D deficiency #Mild hyponatremia #History of diabetes mellitus #History of peripheral neuropathy #Chronic diarrhea #History of essential hypertension #Macrocytic anemia Discharge Disposition: Home Discharge Instruct/Medications Diet: Regular Activity: No Restrictions, As Tolerated Follow Up/Referral: See below Medications: See below Discharge Statement: "Patient was advised to return to the ER or call 911 if any headaches, dizziness, shortness of breath, chest pain, abdominal pain, bleeding, fevers, or worsening of medical condition. Patient was counseled about treatment plan, medications, possible side effects, patientverbalized understanding. All questions were answered to the best of my ability. This discharge took greater then 30 minutes in planning, reviewing documentation, counseling the patient, and discussing with other team members." Date of Service: Jan 10, 2025 Billing Provider: MICHAEL HUIZAR MD Common Visit Codes: [id number] DISCH DAY >30min MICHAEL HUIZAR MD Jan 10, 2025 15:57
[2025-01-10] MEDS ORDERED: GLUC1INJ SC (16:57)
== END 2025-01-10 17:50 | disposition home or self-care (01) | DRG 420 ==
LOC: ER 23:55 → EDBD 23:55 → OVERFLOW 01-08 04:53 → CENTRAL 01-08 15:52
PROVIDERS: ADMIT Student in an Organized Health Care Education/Training Program; ATTEND Student in an Organized Health Care Education/Training Program
PROC: 5A1D70Z Performance of Urinary Filtration, Intermittent, Less than 6 Hours Per Day (ICD-10-PCS; principal; 2025-01-09)
DX: E11.649 Type 2 diabetes mellitus with hypoglycemia without coma (principal); I12.0 Hypertensive chronic kidney disease with stage 5 chronic kidney disease or end stage renal disease; I96 Gangrene, not elsewhere classified; N18.6 End stage renal disease; E11.52 Type 2 diabetes mellitus with diabetic peripheral angiopathy with gangrene; D63.1 Anemia in chronic kidney disease; E87.1 Hypo-osmolality and hyponatremia; E11.22 Type 2 diabetes mellitus with diabetic chronic kidney disease; D53.9 Nutritional anemia, unspecified; Z20.822 Contact with and (suspected) exposure to COVID-19; E11.36 Type 2 diabetes mellitus with diabetic cataract; E55.9 Vitamin D deficiency, unspecified; E11.42 Type 2 diabetes mellitus with diabetic polyneuropathy; K52.9 Noninfective gastroenteritis and colitis, unspecified; Z99.2 Dependence on renal dialysis; Z83.3 Family history of diabetes mellitus; Z91.81 History of falling; Z79.4 Long term (current) use of insulin; Z79.899 Other long term (current) drug therapy; T38.3X5A Adverse effect of insulin and oral hypoglycemic [antidiabetic] drugs, initial encounter; Y92.89 Other specified places as the place of occurrence of the external cause
CPT/HCPCS: 36415; 71045; 80048; 80053; 82962; 83605; 84100; 85025; 85610; 87040; 87278; 87340; 87426; 87804; 90935; 93005; 96365; 96375; 99291; G0378; J2470